=== PATIENT | female | born 1985 | race Hispanic/Latino ===

== ENCOUNTER 2018-06-10 22:51 | Emergency (ER) | payer BC ==
[2018-06-10 22:59] VITALS: O2SAT 100
[2018-06-10] MEDS ORDERED: Lactated Ringer's 1,000 ML IV STA (23:46)
[2018-06-10 23:52] LABS: BASO % 0.2 % (0.0-2.0); EOS % 0.3 % (0.0-4.0); HEMOGLOBIN 13.3 g/dL (12.0-16.0); LYMPH # 1.3 K/uL (1.0-4.3); LYMPH % 10.2 % (20.0-40.0); MEAN CELL VOLUME 91.9 fl (81.0-99.0); MEAN CORPUSCULAR HEMOGLOBIN 31.2 pg (27.0-31.0); MEAN PLATELET VOLUME 9.5 fl (7.2-11.7); MONO # 0.8 K/uL (0.0-0.8); MONO % 6.4 % (0.0-10.0); NEUT # 10.6 K/uL (1.8-7.0); NEUT % 82.9 % (50.0-75.0); RBC 4.25 Mil/uL (3.80-5.20); WHITE BLOOD COUNT 12.8 K/uL (4.8-10.8)
--- NOTE | 2018-06-10 23:53 | ED PDOC ---
HPI: Female Pain Time Seen by Provider: 06/10/18 22:57 Chief Complaint (Nursing): Female Genitourinary Chief Complaint (Provider): Abnormal Vaginal Bleeding History Per: Patient History/Exam Limitations: no limitations Onset/Duration Of Symptoms: Days (x1) Current Symptoms Are (Timing): Still Present Additional Complaint(s): 33 year old female () with no significant past medical history presents to the ED with abnormal vaginal bleeding, 10 weeks by LMNP. Patient was seen by her Facilities Specialist Dr. Fitzgerald and told she had demise at 8 weeks. She was not bleeding at the time and is still determining whether or not to have a surgical , medical or natural miscarriage. Her bleeding suddenly started at 5 pm today associated heavy cramping. She reports bleeding through 4-5 pads with visual tissue and clots. In the past hour, her bleeding has significantly decreased and the clumping has also in intensity. Patient denies any other medical complaints. PMD: none provided. Facilities Specialist: Dr. Fitzgerald Abnormal Vaginal Bleeding: Yes : 1 Para: 0 Past Medical History Reviewed: Historical Data, Nursing Documentation, Vital Signs Vital Signs: Last Vital Signs Temp 97.9 F 06/10/18 22:54 Pulse 83 06/10/18 22:54 Resp 16 06/10/18 22:54 BP 116/66 06/10/18 22:54 Pulse Ox 100 06/10/18 22:54 - Medical History PMH: No Chronic Diseases - Family History Family History: States: Hypertension - Social History Current smoker - smoking cessation education provided: No Ex-Smoker (has not smoked in the last 12 months): No - Allergies Allergies/Adverse Reactions: Allergies Allergy/AdvReac Type Severity Reaction Status Date / Time No Known Allergies Allergy Verified 06/10/18 22:54 Review of Systems ROS Statement: Except As Marked, All Systems Reviewed And Found Negative Genitourinary Female: Positive for: Vaginal Bleeding, Other (cramping) Physical Exam - Reviewed Nursing Documentation Reviewed: Yes Vital Signs Reviewed: Yes - Physical Exam Appears: Positive for: Non-toxic, In Acute Distress (mild and patient looks tired) Head Exam: Positive for: ATRAUMATIC, NORMOCEPHALIC Skin: Positive for: Warm, Dry, Pallor Eye Exam: Positive for: EOMI, Normal appearance, PERRL Neck: Positive for: Painless ROM, Supple Cardiovascular/Chest: Positive for: Regular Rate, Rhythm. Negative for: Murmur Respiratory: Negative for: Accessory Muscle Use, Respiratory Distress Gastrointestinal/Abdominal: Positive for: Tenderness (mild suprapubic tenderness to palpation ). Negative for: Mass, Distended, Guarding Back: Positive for: Normal Inspection. Negative for: Decreased ROM Extremity: Positive for: Normal ROM (upper and lower) Neurologic/Psych: Positive for: Alert, Oriented (x3). Negative for: Motor/ Sensory Deficits - Laboratory Results Result Diagrams: 06/10/18 23:48 06/10/18 23:48 - ECG O2 Sat by Pulse Oximetry: 100 (RA) Pulse Ox Interpretation: Normal Medical Decision Making Medical Decision Making: Time: 22:09 Initial Impression: vaginal bleeding and Differential diagnoses include but are not limited to: incomplete miscarriage, complete miscarriage, anemia, coagulopathy Initial Plan: --Type and Screen --Beta-HCG --CMP --Urine preg --Urine dip --CBC with differentials --Partial thromboplastin time --Prothrombin time --OB transvaginal US --IV insertion Time: 23:46 --Lactated Ringers --Toradol 15 mg IVP Scribe Attestation: Documented by Emerald Hughes, acting as a scribe for Mary Gillespie MD Provider Scribe Attestation: All medical record entries made by the Scribe were at my direction and personally dictated by me. I have reviewed the chart and agree that the record accurately reflects my personal performance of the history, physical exam, medical decision making, and the department course for this patient. I have also personally directed, reviewed, and agree with the discharge instructions and disposition. Disposition - Clinical Impression Clinical Impression: Spontaneous - Disposition Disposition: Transfer of Care Disposition Time: 00:00 Condition: STABLE Patient Signed Over To: Bhavesh Chang Handoff Comments: Pending US and reevaluation and final ER disposition
[2018-06-11] LABS: ALB/GLOB RATIO 1.5 (1.0-2.1); ALBUMIN 4.3 g/dL (3.5-5.0); ALT/SGPT 24 U/L (9-52); AST/SGOT 25 U/L (14-36); BLOOD UREA NITROGEN 16 mg/dl (7-17); CALCIUM 9.3 mg/dL (8.4-10.2); GFR AFRICAN-AMERICAN > 60; GFR NON-AFRICAN AMERICAN > 60
[2018-06-11 00:01] LABS: INR 1.1 (0.9-1.2); PARTIAL THROMBOPLASTIN TIME 24.7 Seconds (25.6-37.1); PROTHROMBIN TIME 12.2 Seconds (9.8-13.1)
--- NOTE | 2018-06-11 01:19 | ED PDOC ---
- Laboratory Results Result Diagrams: 06/10/18 23:48 06/10/18 23:48 - ECG O2 Sat by Pulse Oximetry: 100 (RA) Pulse Ox Interpretation: Normal Medical Decision Making Medical Decision Making: Time: 00:00 --Patient endorsed to this provider by Dr. Gillespie, pending US and blood work. Time: 00:31 Transvaginal, US: FINDINGS: Gestation: No evidence of intrauterine . Placenta/amniotic fluid: Cannot be adequately evaluated due to the early gestational age. Uterus/cervix: Uterus measured 8.4 x 4.0 x 5.0 CM. Endometrium measures 8mm. No myometrial mass. Ovaries: Right ovary measures 2.9 x 1.8 x 3.6 CM. Left ovary measures 4.2 x 1.9 x 2.5 CM. No mass. Free fluid: No free fluid. IMPRESSION: An intrauterine is not identified. All results were explained to patient. Advised followup with OB as soon as possible. Patient given copy of results, discharged in well condition. States she feels "much much better" than earlier. Scribe Attestation: Documented by Emerald Hughes, acting as a scribe for Bhavesh Chang MD Provider Scribe Attestation: All medical record entries made by the Scribe were at my direction and personally dictated by me. I have reviewed the chart and agree that the record accurately reflects my personal performance of the history, physical exam, medical decision making, and the department course for this patient. I have also personally directed, reviewed, and agree with the discharge instructions and disposition. Disposition - Clinical Impression Clinical Impression: Spontaneous - POA Present On Arrival: None - Disposition Disposition: Routine/Home Disposition Time: 00:30 Condition: STABLE Additional Instructions: Please followup with your [facility] in [place] as soon as possible. Instructions: Miscarriage, Dealing With Miscarriage Forms: [employer] (Portuguese)
[2018-06-11 02:49] VITALS: BP 124/70; PULSE 88; RESP 18; TEMP 98.2
--- NOTE | 2018-06-11 11:23 | US ---
Date of service: 06/10/2018 HISTORY: vaginal bleeding preg COMPARISON: None available. TECHNIQUE: Transvaginal FINDINGS: UTERUS: Measures 8.4 x 4.0 by 5.1 cm. Normal in size and appearance. No fibroid or other mass lesion seen. ENDOMETRIUM: Measures 8 mm in diameter. Unremarkable. CERVIX: No cervical abnormality identified. RIGHT OVARY: Measures 2.9 x 1.8 x 3.6 cm. No solid mass. Normal flow. LEFT OVARY: Measures 4.2 x 1.9 x 2.5 cm. No solid mass. Normal flow. FREE FLUID: No significant free fluid noted. OTHER FINDINGS: None. IMPRESSION: Unremarkable pelvic ultrasound. Please note that in the event of the elevated HCG levels, the possibility of ectopic must be considered, in the absence of a demonstrable intrauterine gestation. The preliminary findings for this examination were reported by [facility] at 12:31 a.m. on 06/11/2018. There is concurrence of this report with the preliminary findings.
== END 2018-06-11 01:45 | disposition home or self-care (01) ==
LOC: H.ER 22:51
DX: O03.9 Complete or unspecified spontaneous abortion without complication (principal); Z3A.08 8 weeks gestation of pregnancy
CPT/HCPCS: 76817; 80053; 84702; 85025; 85610; 85730; 86850; 86900; 99284; J7120

== ENCOUNTER 2018-08-30 14:06 | Emergency (ER) | payer BC ==
[2018-08-30 14:16] VITALS: TEMP 98.8; O2SAT 99
[2018-08-30 15:24] LABS: BASO % 0.1 % (0.0-2.0); EOS % 0.1 % (0.0-4.0); HEMOGLOBIN 13.6 g/dL (12.0-16.0); LYMPH # 0.6 K/uL (1.0-4.3); LYMPH % 5.4 % (20.0-40.0); MEAN CELL VOLUME 92.3 fl (81.0-99.0); MEAN CORPUSCULAR HEMOGLOBIN 31.8 pg (27.0-31.0); MEAN CORPUSCULAR HGB CONC 34.4 g/dL (33.0-37.0); MEAN PLATELET VOLUME 9.1 fl (7.2-11.7); MONO # 0.9 K/uL (0.0-0.8); NEUT # 9.7 K/uL (1.8-7.0); NEUT % 86.4 % (50.0-75.0); PLATELET COUNT 152 K/uL (130-400); RBC 4.29 Mil/uL (3.80-5.20); RED CELL DISTRIBUTION WIDTH 12.4 % (11.5-14.5); WHITE BLOOD COUNT 11.2 K/uL (4.8-10.8)
[2018-08-30 15:40] LABS: BLOOD UREA NITROGEN 12 mg/dl (7-17); CALCIUM 9.4 mg/dL (8.4-10.2); GFR NON-AFRICAN AMERICAN > 60
--- NOTE | 2018-08-30 15:56 | ED PDOC ---
HPI: Female Pain Time Seen by Provider: 08/30/18 14:17 Chief Complaint (Nursing): Female Genitourinary Chief Complaint (Provider): "Im having another miscarriage" History Per: Patient History/Exam Limitations: no limitations Onset/Duration Of Symptoms: Days (3), Gradual Current Symptoms Are (Timing): Still Present Severity: Moderate Quality Of Discomfort: denies: Dull, Aching, Cramping Associated Symptoms: denies: Nausea, Vomiting, Diarrhea, Loss Of Appetite, Back Pain, Constipation, Urinary Symptoms Alleviating Factors: None Additional Complaint(s): 33yo female presents concern having a recurrent miscarriage, states vaginal spotting over weekend progressed to menstrual like cramps and bleeding today with tissue noted in vaginal vault she had difficulty removing. That tissue subsequently spontaneously came out when urinating prior to exam in ED. Denies current pain, significant bleeding or weakness. History significant for miscarriage in may, got on next cycle, under care of infertility specialist in [facility]. States this was deemed abnormal last week when BHCG was plateau. 5.5 wk surveillance US did not demonstrate yolk sac per patient. Abnormal Vaginal Bleeding: Yes Past Medical History Reviewed: Historical Data, Nursing Documentation, Vital Signs Vital Signs: Last Vital Signs Temp 98.8 F 08/30/18 14:12 Pulse 91 H 08/30/18 14:12 Resp 20 08/30/18 14:12 BP 125/78 08/30/18 14:12 Pulse Ox 99 08/30/18 14:12 - Medical History PMH: No Chronic Diseases - Family History Family History: States: Hypertension - Living Arrangements Living Arrangements: With Family - Social History Current smoker - smoking cessation education provided: No - Home Medications Home Medications: Ambulatory Orders Medication Instructions Recorded Naproxen [Naprosyn] 500 mg PO BID PRN #14 tablet 08/30/18 traMADol [Ultram] 50 mg PO TID PRN #12 tab 08/30/18 - Allergies Allergies/Adverse Reactions: Allergies Allergy/AdvReac Type Severity Reaction Status Date / Time No Known Allergies Allergy Verified 08/30/18 14:19 Review of Systems ROS Statement: Except As Marked, All Systems Reviewed And Found Negative Constitutional: Negative for: Fever Eyes: Negative for: Vision Change ENT: Negative for: Ear Pain, Nose Discharge Cardiovascular: Negative for: Chest Pain Respiratory: Negative for: Cough, Shortness of Breath Gastrointestinal: Negative for: Abdominal Pain, Hematochezia Genitourinary Female: Positive for: Vaginal Bleeding, Pelvic Pain. Negative for: Dysuria Musculoskeletal: Negative for: Neck Pain, Shoulder Pain, Back Pain, Hand Pain Skin: Negative for: Rash, Lesions, Jaundice Neurological: Negative for: Weakness, Numbness Psych: Negative for: Anxiety Physical Exam - Reviewed Nursing Documentation Reviewed: Yes Vital Signs Reviewed: Yes - Physical Exam Appears: Positive for: Well, Non-toxic, No Acute Distress Head Exam: Positive for: ATRAUMATIC, NORMAL INSPECTION, NORMOCEPHALIC Skin: Positive for: Normal Color, Warm, DRY Eye Exam: Positive for: EOMI, Normal appearance, PERRL ENT: Positive for: Normal ENT Inspection Neck: Positive for: Normal, Painless ROM Cardiovascular/Chest: Positive for: Regular Rate, Rhythm Respiratory: Positive for: CNT, Normal Breath Sounds Gastrointestinal/Abdominal: Positive for: Normal Exam, Soft. Negative for: Tenderness, Guarding Pelvic Exam: Positive for: External Exam Normal, Other (moderate tissue at cervical os trace blood in vault) Back: Positive for: Normal Inspection Extremity: Positive for: Normal ROM Neurologic/Psych: Positive for: Alert, Oriented - Laboratory Results Result Diagrams: 08/30/18 15:05 08/30/18 15:05 - ECG O2 Sat by Pulse Oximetry: 99 Medical Decision Making Medical Decision Making: [facility] approx 1400, down from reported 1999 outpatient last week Rh+ last visit Accession No. : [id number] Patient Name / ID : ELEAZAR TILLMAN / [id number] Exam Date : 08/30/2018 16:32:15 ( Approved ) Study Comment : Sex / Age : F / 33Y Creator : Kenyatta Chacon MD Dictator : Kenyatta Chacon MD Fruit [employer] Nut Grower : Sleep Lab Technician : Kenyatta Chacon MD Approver2 : Report Date : 08/30/2018 17:21:35 My Comment : Date of service: 08/30/18 Ob transvaginal ultrasound Indication: Incomplete rule out retained products Comparison: Ob transvaginal ultrasound performed 06/10/18 Technique: Transvaginal pelvic ultrasound. Findings: The uterus measures approximately 7.2 x 4.8 x 5.5 cm. Cervix length measures approximately 3.6 cm. The endometrium measures approximately 1.4 cm in diameter. No evidence of intrauterine gestational sac. No evidence of endometrial vascularity. The right ovary measures 2.8 x 2.1 x 2.3 cm. The left ovary measures 3.3 x 1.1 x 3.3 cm. Blood flow was demonstrated to both ovaries. Impression: Unremarkable ultrasound as above. Results explained to patient, given copies blood and US report on her request to bring to her fertility OB in [facility]. Vitals stable and comfortable on discharge, she reported minimal bleeding. Disposition - Clinical Impression Clinical Impression: Spontaneous - Patient ED Disposition Is Patient to be Admitted: No Counseled Patient/Family Regarding: Studies Performed, Diagnosis, Need For Followup - Disposition Disposition: Routine/Home Disposition Time: 17:45 Condition: STABLE Additional Instructions: Followup with your OB as directed. Use medication for pain as directed. Return to ER for any worse bleeding, dizziness, fever or any concern. Prescriptions: Naproxen [Naprosyn] 500 mg PO BID PRN #14 tablet PRN Reason: Pain, Moderate (4-7) traMADol [Ultram] 50 mg PO TID PRN #12 tab PRN Reason: Pain, Moderate (4-7) Instructions: Miscarriage, Dealing With Miscarriage Forms: [employer] (Polish)
[2018-08-30 16:20] LABS: BANDS 3 % (0-2); HYPOCHROMIC SLIGHT; LYMPHOCYTE 8 % (20-50); MONOCYTE 9 % (0-10); NEUTROPHIL 80 % (42-75); PLATELET ESTIMATE NORMAL (NORMAL); TOTAL CELLS COUNTED 100
--- NOTE | 2018-08-30 17:25 | US ---
Date of service: 08/30/18 Ob transvaginal ultrasound Indication: Incomplete rule out retained products Comparison: Ob transvaginal ultrasound performed 06/10/18 Technique: Transvaginal pelvic ultrasound. Findings: The uterus measures approximately 7.2 x 4.8 x 5.5 cm. Cervix length measures approximately 3.6 cm. The endometrium measures approximately 1.4 cm in diameter. No evidence of intrauterine gestational sac. No evidence of endometrial vascularity. The right ovary measures 2.8 x 2.1 x 2.3 cm. The left ovary measures 3.3 x 1.1 x 3.3 cm. Blood flow was demonstrated to both ovaries. Impression: Unremarkable ultrasound as above.
[2018-08-30 18:38] VITALS: BP 110/71; PULSE 81; RESP 18
== END 2018-08-30 18:37 | disposition home or self-care (01) ==
LOC: H.ER 14:06
DX: N93.8 Other specified abnormal uterine and vaginal bleeding (principal); O03.4 Incomplete spontaneous abortion without complication
CPT/HCPCS: 76817; 80048; 84702; 85025; 96374; 99284; J1885